=== PATIENT | male | born 1980 | race Caucasian/White ===

== ENCOUNTER 2020-12-16 17:02 | Emergency (ER) | payer OTHER ==
[~2020-12-16] VITALS: Ht 175.3 cm; Wt 108.9 kg
--- NOTE | 2020-12-16 17:02 | NUR ---
40 YEAR OLD MALE BIBA FOR CARDIAC ARREST. PER EMS PT GRABBED LEFT ARM AND THEN FELL TO FLOOR, CPR WAS STARTED IMMEDIATELY BY FRIENDS. PER FIRE PT WAS INITIAL WITH FVIB RHYTHM ; PT WAS GIVEN 5 EPI, 1 BICARB, 3 SHOCKS IN ROUTE TO [facility]. UPON ARRIVAL TO HOSPITAL CPR WAS CONTINUED WHEN TRANSFERED TO BED - 5 RN, RT, EMT, AND DR ROCHA AT BEDSIDE OF PATIENT. PT BS 113. GCS 3. PATIENT BVM BY RT UPON ARRIVAL. SEE CODE BLUE SHEET. PMH - UNKNOWN ALLERGIES - UNOBTAINABLE
--- NOTE | 2020-12-16 17:02 | NUR ---
Note undone in EDM - 12/16/20 at 1920 by MEDALEJANDRA 51 YEAR OLD MALE BIBA FOR CARDIAC ARREST. PER EMS PT GRABBED LEFT ARM AND THEN FELL TO FLOOR, CPR WAS STARTED IMMEDIATELY BY FRIENDS. PER FIRE PT WAS INITIAL WITH FVIB RHYTHM ; PT WAS GIVEN 5 EPI, 1 BICARB, 3 SHOCKS IN ROUTE TO [facility]. UPON ARRIVAL TO HOSPITAL CPR WAS CONTINUED WHEN TRANSFERED TO BED - 5 RN, RT, EMT, AND DR ROCHA AT BEDSIDE OF PATIENT. PT BS 113. GCS 3. PATIENT BVM BY RT UPON ARRIVAL. SEE CODE BLUE SHEET. PMH - UNKNOWN ALLERGIES - UNOBTAINABLE
--- NOTE | 2020-12-16 17:02 | NUR ---
Note undone in EDM - 12/16/20 at 1732 by MEDALEJANDRA 51 YEAR OLD MALE BIBA FOR CARDIAC ARREST. PER EMS PT FELL TO FLOOR AND CPR WAS STARTED IMMEDIATELY BY FRIENDS. PT WAS GIVEN 5 EPI, 1 BICARB, 3 SHOCKS IN ROUTE TO [facility]. UPON ARRIVAL TO HOSPITAL CPR WAS CONTINUED WHEN TRANSFERED TO BED - 5 RN, RT, EMT, AND DR ROCHA AT BEDSIDE OF PATIENT. PT BS 113. GCS 3. PATIENT BVM BY RT UPON ARRIVAL. SEE CODE BLUE SHEET. PMH - UNKNOWN ALLERGIES - UNOBTAINABLE
--- NOTE | 2020-12-16 17:02 | NUR ---
CARDIOPULMONARY ARREST Matthew MG RCP AND Rolando TEAGUE RCP ATTENDING
--- NOTE | 2020-12-16 17:02 | NUR ---
Note undone in EDM - 12/16/20 at 1920 by MEDALEJANDRA 51 YEAR OLD MALE BIBA FOR CARDIAC ARREST. PER EMS PT GRABBED LEFT ARM AND THEN FELL TO FLOOR, CPR WAS STARTED IMMEDIATELY BY FRIENDS. PER FIRE PT WAS INITIAL WITH FVIB RHYTHM ; PT WAS GIVEN 5 EPI, 1 BICARB, 3 SHOCKS IN ROUTE TO [facility]. UPON ARRIVAL TO HOSPITAL CPR WAS CONTINUED WHEN TRANSFERED TO BED - 5 RN, RT, EMT, AND DR ROCHA AT BEDSIDE OF PATIENT. PT BS 113. GCS 3. PATIENT BVM BY RT UPON ARRIVAL. SEE CODE BLUE SHEET. PMH - UNKNOWN ALLERGIES - UNOBTAINABLE
--- NOTE | 2020-12-16 17:02 | NUR ---
CARDIOPULMONARY ARREST LUIS ANTONIO BOLTONP AND LUIS ANTONIO REYESP ATTENDING
--- NOTE | 2020-12-16 17:45 | NUR ---
PATIENT (MOISES DASILVA) INFORMED OF PATIENT BY DR ROCHA.
--- NOTE | 2020-12-16 18:01 | NUR ---
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
--- NOTE | 2020-12-16 18:12 | NUR ---
SPOKE TO [facility] @ [phone], CASE#[id number]
--- NOTE | 2020-12-16 18:25 | NUR ---
STEP-BROTHER AT BEDSIDE OF PATIENT
--- NOTE | 2020-12-16 19:25 | NUR ---
RECEIVED REPORT FROM MAYTE RO. TRANSFER OF CARE AT THIS TIME.
--- NOTE | 2020-12-16 19:53 | NUR ---
RECIVED CALL FROM [facility] AND SPOKE WITH DAIANA. GAVE KALYAN INFORMATION REGARDING CASE AND NOTIFIED HAT PATIENT HAS NOT BEEN CLEARED BY THE CORNER.
--- NOTE | 2020-12-16 21:10 | NUR ---
RECIEVED CALL FROM [facility] FROM KALYAN REGARDING UPDATE ON SQUADRON WORKER'S CALL BACK. SQUADRON WORKER STILL HAS NOT CALLED BACK FOR SQUADRON WORKER'S CASE NUMBER.
--- NOTE | 2020-12-16 22:00 | NUR ---
RECIEVED CALL FROM [facility] ATTEND[facility] OFFICE FROM [facility] [employer] KAYLA ALCANTARA. SHE STATED THAT PT. IS THIRD IN LINE TO BE PICKED UP, AND IT WILL BE A COUPLE OF HOURS FOR TRANSPORT. KAYLA STATES THAT CASE NUMBER WILL BE GIVEN BEFORE TRANSPORT TEAM ARRIVES.
--- NOTE | 2020-12-16 22:30 | NUR ---
SPOKE WITH MADDY FROM [facility] OFFICE, GAVE CLINICAL INFORMATION. PER MADDY WILL CALL BACK WITH CASE NUMBER.
--- NOTE | 2020-12-16 22:58 | NUR ---
SPOKE WITH KALYAN FROM [facility] TO GIVE UPDATE ON PATIENT STATUS. INFORMED HER THAT PATIENT STILL REMIANS IN ER. NO CORNERS CASE # GIVEN AT THIS TIME.
--- NOTE | 2020-12-16 23:40 | NUR ---
RECEIVED CALL FROM METER READING CLERK'S OFFICE FROM KAYLA ALCANTARA. GIVEN CASE # [id number]. KAYLA ASKED FOR [facility] RUN SHEET, RECORD OF FORM, AND CODE SHEET WITH CHARTING NOTES TO BE FAXED. ETA OF TRANSPORT TEAM 1 HR. FAX =
--- NOTE | 2020-12-17 00:57 | NUR ---
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
--- NOTE | 2020-12-17 02:41 | NUR ---
ECONOMIC DEVELOPMENT MANAGER AT BEDSIDE.
--- NOTE | 2020-12-17 03:27 | NUR ---
USER INTERFACE DEVELOPER TAKEN BODY OF PT. VIA TERESA.
--- NOTE | 2020-12-17 03:35 | NUR ---
ATTEMPTED TO SHIFT SUPERINTENDENT TO NOTIFY LOBITO DASILVA (BROTHER IN LAW) BUT NO ANSWER.
--- NOTE | 2020-12-17 03:38 | NUR ---
ATTEMPTED TO CALL NEXT OF KIN MOISES DASILVA () BUT NO ANSWER.
== END 2020-12-16 17:22 ==
LOC: EDBD 17:02 → MED 17:02
DX: I46.9 Cardiac arrest, cause unspecified (principal); R07.9 Chest pain, unspecified
CPT/HCPCS: 31500; 92950; 99291